=== PATIENT | male | born 1980 | race Caucasian/White ===

== ENCOUNTER → 2023-12-03 07:03 | Outpatient (REF) | payer OTHER, SELFPAY ==
[2023-12-03 08:08] LABS: % Basophils 0.6 % (0-2); % Eosinophils 2.6 % (0-6); % Immature Granulocytes 0.5 % (0-0.5); % Lymphocytes 21.3 % (20.5-51.1); % Monocytes 6.4 % (1.7-9.3); % Neutrophils 68.6 % (42.2-75.2); Absolute Basophils 0.1 10^3/uL (0-0.2); Absolute Eosinophils 0.3 10^3/uL (0-0.7); Absolute Immature Granulocytes 0.1 10^3/uL (0-0.05); Absolute Lymphocytes 2.4 10^3/uL (1.2-3.4); Absolute Monocytes 0.7 10^3/uL (0.1-0.6); Absolute Neutrophils 7.7 10^3/uL (1.4-6.5); Hematocrit 46.1 % (39.0-52.0); Hemoglobin 16.1 g/dL (13.0-18.0); Mean Corp Hgb Conc. 34.9 g/dL (33.0-37.0); Mean Corpuscular Hgb 29.3 pg (27.0-31.0); Mean Corpuscular Volume 83.8 fL (80.0-94.0); Nucleated Red Blood Cells % 0 % (-); Platelet Count 305 10^3/uL (130-400); Red Cell Dist. Width 13.1 % (11.5-14.5); White Blood Cell Count 11.2 10^3/uL (4.8-10.8)
[2023-12-03 08:26] LABS: ALT (SGPT) 75 U/L (0-50); AST (SGOT) 41 U/L (17-59); Alkaline Phosphatase 111 U/L (38-126); Blood Urea Nitrogen 17 mg/dl (9-20); Calcium 10.1 mg/dl (8.4-10.2); Carbon Dioxide 28 mmol/L (22-30); Chloride 104 mmol/L (98-107); Glucose 105 mg/dl (70-99); Potassium 4.1 mmol/L (3.5-5.1); Sodium 139 mmol/L (135-145); Total Bilirubin 0.6 mg/dl (0.2-1.3); Total Protein 8.1 g/dl (6.3-8.2); eGFR > 60.00
== END ==
LOC: RCS 07:03
PROVIDERS: ATTENDING PHYSICIAN Surgery Plastic and Reconstructive Surgery
DX: Z01.818 Encounter for other preprocedural examination (principal)
CPT/HCPCS: 36415; 80053; 85025; 93005

== ENCOUNTER → 2024-06-25 07:17 | Outpatient (REF) | payer OTHER, SELFPAY ==
[2024-06-25 08:06] LABS: % Eosinophils 3.6 % (0-6); % Immature Granulocytes 0.6 % (0-0.5); % Lymphocytes 21.5 % (20.5-51.1); % Monocytes 6.9 % (1.7-9.3); % Neutrophils 66.4 % (42.2-75.2); Absolute Basophils 0.1 10^3/uL (0-0.2); Absolute Eosinophils 0.3 10^3/uL (0-0.7); Absolute Immature Granulocytes 0.1 10^3/uL (0-0.05); Absolute Lymphocytes 2.1 10^3/uL (1.2-3.4); Absolute Monocytes 0.7 10^3/uL (0.1-0.6); Absolute Neutrophils 6.4 10^3/uL (1.4-6.5); Hematocrit 44.7 % (39.0-52.0); Hemoglobin 15.2 g/dL (13.0-18.0); Mean Corpuscular Hgb 28.8 pg (27.0-31.0); Mean Corpuscular Volume 84.8 fL (80.0-94.0); Nucleated Red Blood Cells % 0 % (-); Platelet Count 280 10^3/uL (130-400); Red Blood Cell Count 5.27 10^6/uL (4.70-6.10); Red Cell Dist. Width 12.9 % (11.5-14.5); White Blood Cell Count 9.6 10^3/uL (4.8-10.8)
[2024-06-25 08:29] LABS: ALT (SGPT) 68 U/L (0-50); AST (SGOT) 35 U/L (17-59); Alkaline Phosphatase 88 U/L (38-126); Blood Urea Nitrogen 19 mg/dl (9-20); Calcium 10.8 mg/dl (8.4-10.2); Carbon Dioxide 29 mmol/L (22-30); Chloride 103 mmol/L (98-107); Glucose 102 mg/dl (70-99); Potassium 4.8 mmol/L (3.5-5.1); Sodium 145 mmol/L (135-145); Total Bilirubin 0.5 mg/dl (0.2-1.3); Total Protein 8.1 g/dl (6.3-8.2); eGFR > 60.00
== END ==
LOC: REG 07:17
PROVIDERS: ATTENDING PHYSICIAN Surgery Plastic and Reconstructive Surgery; FAMILY PHYSICIAN Family Medicine
DX: Z01.818 Encounter for other preprocedural examination (principal)
CPT/HCPCS: 36415; 80053; 85025; 93005

== ENCOUNTER 2024-07-06 06:12 | Day surgery (SDC) | payer OTHER, SELFPAY ==
[2024-07-06] VITALS (10 sets, daily range): BP systolic 106–138; BP diastolic 61–86; BMI 32.8
[2024-07-06] MEDS: TYLENOL 1000 MG PO (08:16)
--- NOTE | 2024-07-06 10:00 | W.SUR.PREOP ---
Pre-Operative Surgical Note
-
I have examined this patient prior to the performance of the scheduled procedure.
The patient's condition is unchanged from the time of the current History and
Physical and the patient is able to undergo the scheduled procedure.
--- NOTE | 2024-07-06 11:56 | W.IMMPOSTOP ---
Surgical Immed Post Op Note
-
Primary Surgeon: ALYSSA Fontenot MD
Assisting Surgeon:
Pre-op Diagnosis: Soft tissue mass, back
Post-op Diagnosis: Same
Procedure Performed: Excision of soft tissue mass x 2, complex closure
Anesthesia Type: General
Specimen / Cultures: Soft tissue mass of back 1, main lesion ; Soft tissue mass of back 2, secondary lesion
Estimated Blood Loss: 10cc
Complications: None
Operative Findings: As expected
--- NOTE | 2024-07-06 11:57 | OR.RPT ---
Operative Report
Operative Report
Date of surgery: 07/06/2024
Surgeon: ALYSSA Fontenot MD
Preoperative diagnosis: Soft tissue mass of back
Postoperative diagnosis: Same
Procedure:
1. Excision of subcutaneous mass of back, subfascial, 17 x 14 cm
2. Excision of subcutaneous mass of back, suprafascial, 5 x 4 cm
3. Complex closure of back wound 15 cm
anesthesia: General
Complications: None
Specimens: Soft tissue mass of back, primary; soft tissue mass of back, secondary
EBL: 10 cc
indications for procedure: Patient is a 43-year-old male with a longstanding history of a slow-growing mass of the soft tissues of the upper back. He presented to the office desiring removal. A plan was made for outpatient elective procedure but
was canceled on the same day due to uncontrolled hypertension. As such in the interim he went back to establish a primary care physician and optimize his status prior to elective surgery. He has since been cleared by his physician and is ready to
proceed with excision of the subcutaneous mass of the back. We discussed risks at length including the risk of anesthesia. These risks include but are not limited to infection, seroma, hematoma, recurrent mass, delayed wound healing and need for
repeat procedure. Abnormal scarring is always a possibility. Plan was made for the incision to avoid his prior tattoo. He understood these risks and desired to proceed. Consents were signed accordingly.
Procedure in detail: Patient was identified preoperatively and the surgical site was confirmed to be the back. Patient confirmed that there was a primary lesion as well as a secondary lesion in the superior lateral aspect of the back. These were
demarcated as well as an incision along the medial aspect of a prior tattoo as to not disturb it. All questions were answered and consents were confirmed. Patient was taken back to the operative room laid supine on the table. Anesthesia was
induced and endotracheal tube was placed. Patient was then placed in the lateral decubitus position with the left side down. His eyes were protected as were all pressure points. Beanbag was used to support the body. Patient was then prepped and
draped in usual sterile fashion using ChloraPrep solution. Timeout for patient safety was performed was confirmed that preoperative antibiotics had been administered and bilateral SCDs were placed. Procedure began with the injection 1% lidocaine
with epinephrine in the proposed incisional markings. After waiting appropriate amount of time, a 15 blade was used to incise the markings. Bovie electrocautery was used to dissect down through the superficial tissues and fascia. Upon releasing
this fascia, the encapsulated soft tissue mass which looked primary lipomatous was encountered. A combination of sharp and blunt dissection was used to free the mass from the surrounding tissues in every direction. the mass was completely excised
and was measured to be approximately 17 x 14 cm. Attention was around drawn back to the separate lesion the patient brought attention to which was still present. Through the prior subcutaneous plane and incision, additional dissection was
completed to identify this mass which measures measured to be 5 x 4 cm in dimension. This was also removed and sent for pathology. A large along the fascia was then present and meticulous hemostasis was ensured. The wound was thoroughly
irrigated and a 15 [place] drain was placed. A complex closure Over 15 cm was then performed using multiple layers of imbricating and quilting sutures to occupy the space. These were 0 and 2-0 Vicryl. Additional multilayer skin
closure was performed with a series of 3 oh-0 and 4-0 Monocryl drain was sutured in place with a 2-0 Prolene. Patient tolerated the procedure well, was performed out complication. All counts were correct at the end the case.
== END 2024-07-06 13:45 | disposition home or self-care (01) ==
LOC: SDS 06:12
PROVIDERS: ATTENDING PHYSICIAN Surgery Plastic and Reconstructive Surgery; FAMILY PHYSICIAN Family Medicine
DX: D17.1 Benign lipomatous neoplasm of skin and subcutaneous tissue of trunk (principal); R22.2 Localized swelling, mass and lump, trunk; I10 Essential (primary) hypertension
CPT/HCPCS: 21931; 88304